=== PATIENT | female | born 1940 | race Caucasian/White ===

== ENCOUNTER → 2024-01-05 10:37 | Outpatient (REF) | payer MEDICARE, SELFPAY | LOC: RAD 10:37 | PROVIDERS: ATTENDING PHYSICIAN Internal Medicine Endocrinology, Diabetes & Metabolism; FAMILY PHYSICIAN Physician Assistant Medical | DX: E83.52 Hypercalcemia (principal); Z78.0 Asymptomatic menopausal state | CPT/HCPCS: 77080; 77081 ==

== ENCOUNTER → 2025-05-12 15:31 | Outpatient (REF) | payer MEDICARE, SELFPAY | LOC: RAD 15:31 | PROVIDERS: ATTENDING PHYSICIAN Physician Assistant Medical | DX: R51.9 Headache, unspecified (principal); Z86.69 Personal history of other diseases of the nervous system and sense organs | CPT/HCPCS: 70450 ==

== ENCOUNTER → 2025-05-23 08:12 | Outpatient (REF) | payer MEDICARE, SELFPAY | LOC: RAD 08:12 | PROVIDERS: ATTENDING PHYSICIAN Physician Assistant Medical | DX: R51.9 Headache, unspecified (principal); Z86.69 Personal history of other diseases of the nervous system and sense organs | CPT/HCPCS: 93880 ==